=== PATIENT | male | born 1995 | race Two or more races ===

== ENCOUNTER 2017-06-23 13:46 | Emergency (ER) | payer OTHER ==
[2017-06-23 14:05] VITALS: RESP 18
[2017-06-23] MEDS ORDERED: ONDANSETRON DISINTEGRATING 4 MG TAB PO ONE (14:54)
[2017-06-23 15:50] LABS: % IMMATURE GRANULYOCYTES 0.4 % (0.0-1.1); ABSOLUTE IMMATURE GRANULOCYTES 0.04 10^3/uL (0.00-0.10); ADD DIFF? NO; ADD MORPH? NO; ADD SCAN? NO; ATYPICAL LYMPHOCYTE FLAG 0 (0-99); FRAGMENT RBC FLAG 0 (0-99); HEMATOCRIT 45.4 % (40.0-51.0); HEMOGLOBIN 15.8 g/dL (13.7-17.5); LEFT SHIFT FLG 0 (0-99); LIPEMIA HEMOLYSIS FLAG 90 (0-99); MEAN CELL HEMOGLOBIN 31.7 pg (27.9-34.1); MEAN CELL HEMOGLOBIN CONCENTR. 34.8 g/dL (32.4-36.7); MEAN CELL VOLUME 91.2 fL (81.5-99.8); PLATELET CLUMPS FLAG 20 (0-99); PLATELET COUNT 228 10^3/uL (150-400); RED BLOOD CELL COUNT 4.98 10^6/uL (4.40-6.38); RED CELL DISTRIBUTION WIDTH 11.4 % (11.5-15.2)
[2017-06-23 16:01] LABS: ALANINE AMINOTRANSFERASE 41 IU/L (21-72); ALBUMIN 5.1 g/dL (3.5-5.0); ALKALINE PHOSPHATASE 98 IU/L (38-126); ANION GAP 20 mEq/L (8-16); ASPARTATE AMINOTRANSFERASE 34 IU/L (17-59); BILIRUBIN,TOTAL 2.3 mg/dL (0.1-1.4); BILIRUBIN-CONJUGATED 0.4 mg/dL (0.0-0.5); BILIRUBIN-UNCONJUGATED 1.9 mg/dL (0.0-1.1); CALCIUM 10.3 mg/dL (8.5-10.4); CARBON DIOXIDE 20 mEq/l (22-31); CHLORIDE 104 mEq/L (97-110); CREATININE 0.9 mg/dL (0.7-1.3); GLOMERULAR FILTRATION RATE > 60; GLUCOSE 65 mg/dL (70-100); POTASSIUM 4.3 mEq/L (3.5-5.2); SODIUM 144 mEq/L (134-144); TOTAL PROTEIN 8.5 g/dL (6.3-8.2)
[2017-06-23] MEDS ORDERED: ONDANSETRON 4 MG/2 ML VIAL IVP ONE (16:12)
[2017-06-23] MEDS ORDERED: NS 1,000 ML IV ONE (16:12)
[2017-06-23] MEDS ORDERED: PANTOPRAZOLE SODIUM 40 MG VIAL IVP ONE (16:12)
--- NOTE | 2017-06-23 16:18 | EDPHY ---
H & P Time Seen by Provider: 06/23/17 14:57 HPI/ROS: CHIEF COMPLAINT: Vomiting, abdominal pain HISTORY OF PRESENT ILLNESS: 21-year-old male presents to the emergency department by private vehicle with multiple episodes of vomiting and epigastric abdominal pain. The patient states that he drank a lot of alcohol yesterday and 8 very little. He felt fine when he went to sleep and this morning woke up and has been vomiting several times. He denies diarrhea. He states most recently when he was vomiting, he noticed some blood in the emesis. He denies sore throat. Denies chest pain or difficulty breathing. Denies any reported trauma. No fevers or chills. No recent travel. REVIEW OF SYSTEMS: Constitutional: No fever, no chills. Eyes: No double or blurry vision. ENT: No sore throat. Respiratory: No cough, no shortness of breath. Cardiac: No chest pain. Gastrointestinal: Abdominal pain, vomiting as above. No diarrhea. Genitourinary: No dysuria. Musculoskeletal: No neck or back pain. Skin: No rashes. Neurological: No headache. Past Medical/Surgical History: Negative Social History: [employer] student Smoking Status: Current every day smoker Physical Exam: General Appearance: Alert, no distress. Eyes: Pupils equal and round. Extraocular motions are all intact. ENT: Mouth: Mucous membranes moist. Respiratory: No wheezing, rhonchi, or rales, lungs are clear to auscultation. Cardiovascular: Regular rate and rhythm. Gastrointestinal: Abdomen is soft. Mild tenderness with palpation in the epigastric area. There is no rebound, guarding or masses noted. No CVA tenderness bilaterally. Neurological: Alert and oriented x 3, cranial nerves II through XII grossly intact Skin: Warm and dry, no rashes. Musculoskeletal: Nontender to palpate along the cervical, thoracic or lumbar spine. Neck is supple. Extremities: Full range of motion and no peripheral edema. Psychiatric: Patient is oriented X 3, there is no agitation. Constitutional: Initial Vital Signs Temperature (C) 36.6 C 06/23/17 14:01 Heart Rate 98 06/23/17 14:01 Respiratory Rate 18 06/23/17 14:01 Blood Pressure 128/83 H 06/23/17 14:01 O2 Sat (%) 99 06/23/17 14:01 O2 Delivery Mode Room Air Allergies/Adverse Reactions: No Known Allergies Allergy (Unverified 08/04/15 19:23) Home Medications: Medication Instructions Recorded Albuterol 17 gm IH 08/04/15 Amoxicillin 500 mg PO TID 7 Days cap 08/04/15 Medical Decision Making ED Course/Re-evaluation: 21-year-old male presents to the emergency department with abdominal pain and vomiting. He has reported hematemesis. His laboratory studies are unremarkable. He was given IV Protonix, IV Zofran, and IV normal saline. He was feeling much better. He was tolerating p.o. fluids and is comfortable being discharged home. He was given apple juice. He was asking if he can go eat "Sushi" and I recommended only clear liquids until he has not vomited for at least 12 hours. I do not think imaging studies are indicated. The patient's abdomen is nontender upon discharge. Differential Diagnosis: Including but not limited to gastritis, peptic ulcer disease, GERD, dehydration , pancreatitis, GI bleed - Data Points Laboratory Results: Laboratory Results 06/23/17 15:38 06/23/17 15:38 06/23/17 06/23/17 15:38 15:38 WBC 10.29 10^3/uL H 10^3/uL (3.80-9.50) RBC 4.98 10^6/uL 10^6/uL (4.40-6.38) Hgb 15.8 g/dL g/dL (13.7-17.5) Hct 45.4 % % (40.0-51.0) MCV 91.2 fL fL (81.5-99.8) MCH 31.7 pg pg (27.9-34.1) MCHC 34.8 g/dL g/dL (32.4-36.7) RDW 11.4 % L % (11.5-15.2) Plt Count 228 10^3/uL 10^3/uL (150-400) MPV 10.0 fL fL (8.7-11.7) Neut % (Auto) 87.7 % H % (39.3-74.2) Lymph % (Auto) 8.3 % L % (15.0-45.0) [place] % (Auto) 3.0 % L % (4.5-13.0) Eos % (Auto) 0.1 % L % (0.6-7.6) Baso % (Auto) 0.5 % % (0.3-1.7) Nucleat RBC Rel Count 0.0 % % (0.0-0.2) Absolute Neuts (auto) 9.03 10^3/uL H 10^3/uL (1.70-6.50) Absolute Lymphs (auto) 0.85 10^3/uL L 10^3/uL (1.00-3.00) Absolute Monos (auto) 0.31 10^3/uL 10^3/uL (0.30-0.80) Absolute Eos (auto) 0.01 10^3/uL L 10^3/uL (0.03-0.40) Absolute Basos (auto) 0.05 10^3/uL 10^3/uL (0.02-0.10) Absolute Nucleated RBC 0.00 10^3/uL 10^3/uL (0-0.01) Immature Gran % 0.4 % % (0.0-1.1) Immature Gran # 0.04 10^3/uL 10^3/uL (0.00-0.10) Sodium 144 mEq/L mEq/L (134-144) Potassium 4.3 mEq/L mEq/L (3.5-5.2) Chloride 104 mEq/L mEq/L (97-110) Carbon Dioxide 20 mEq/l L mEq/l (22-31) Anion Gap 20 mEq/L H mEq/L (8-16) BUN 19 mg/dL mg/dL (7-23) Creatinine 0.9 mg/dL mg/dL (0.7-1.3) Estimated GFR > 60 Glucose 65 mg/dL L mg/dL (70-100) Calcium 10.3 mg/dL mg/dL (8.5-10.4) Total Bilirubin 2.3 mg/dL H mg/dL (0.1-1.4) Conjugated Bilirubin 0.4 mg/dL mg/dL (0.0-0.5) Unconjugated Bilirubin 1.9 mg/dL H mg/dL (0.0-1.1) AST 34 IU/L IU/L (17-59) ALT 41 IU/L IU/L (21-72) Alkaline Phosphatase 98 IU/L IU/L (38-126) Total Protein 8.5 g/dL H g/dL (6.3-8.2) Albumin 5.1 g/dL H g/dL (3.5-5.0) Lipase 49 IU/L IU/L (23-300) Medications Given: Discontinued Medications Sodium Chloride (Ns) 1,000 mls @ 0 mls/hr IV EDNOW ONE; Wide Open PRN Reason: Protocol Stop: 06/23/17 16:13 Last Admin: 06/23/17 16:26 Dose: 1,000 mls Ondansetron HCl (Zofran Odt) 4 mg PO EDNOW ONE Stop: 06/23/17 14:55 Last Admin: 06/23/17 14:55 Dose: Not Given Ondansetron HCl (Zofran) 4 mg IVP EDNOW ONE Stop: 06/23/17 16:13 Last Admin: 06/23/17 16:26 Dose: 4 mg Pantoprazole Sodium (Protonix) 40 mg IVP EDNOW ONE Stop: 06/23/17 16:13 Last Admin: 06/23/17 16:25 Dose: 40 mg Departure - Departure Disposition: Home, Routine, Self-Care Clinical Impression: Abdominal pain Qualifiers: Abdominal location: epigastric Qualified Code(s): R10.13 - Epigastric pain Vomiting Qualifiers: Vomiting type: unspecified Vomiting Intractability: non-intractable Nausea presence: with nausea Qualified Code(s): R11.2 - Nausea with vomiting, unspecified Condition: Good Instructions: Acute Nausea and Vomiting (ED), Acute Abdominal Pain (ED) Additional Instructions: Abdominal Pain: Return to the Emergency Department immediately for increasing pain, fever, vomiting, or if not completely better in 8-12 hours. Clear liquids and then slowly advance diet as tolerated. Referrals: Caity Negron MD [[facility] [place] Care Provider] - 1-2 days without fail ( Primary care provider director of contracts)
[2017-06-23] MEDS ORDERED: NS 50 ML BAG IV ONE (16:21)
[2017-06-23 18:10] VITALS: BP 99/50; PULSE 92; TEMP 98.4; O2SAT 98
== END 2017-06-23 18:10 | disposition home or self-care (01) ==
DX: R10.13 Epigastric pain (principal); R11.2 Nausea with vomiting, unspecified; F17.200 Nicotine dependence, unspecified, uncomplicated; E86.9 Volume depletion, unspecified
CPT/HCPCS: 96374; J2405

== ENCOUNTER 2017-07-27 13:53 | Emergency (ER) | payer OTHER ==
[2017-07-27 13:59] VITALS: RESP 16; TEMP 98.6
[2017-07-27] MEDS ORDERED: ONDANSETRON 4 MG/2 ML VIAL IVP ONE (14:52)
[2017-07-27] MEDS ORDERED: IPRATROPIUM/ALBUTEROL 3 ML DEYVIAL IH ONE (14:52)
--- NOTE | 2017-07-27 14:52 | EDPHY ---
H & P Time Seen by Provider: 07/27/17 14:20 HPI/ROS: Chief complaint. Cough and nausea HPI. 21-year-old male has been sick off and on for 1 month. Month ago he was running fever. He got better and then he has again had cough for about 1 week. 3 days ago he had too much alcohol to drink without enough food in his stomach. He has had nausea since then. Nausea but no vomiting. No abdominal pain. No diarrhea. No fever. He has a history of asthma but has not been using his inhaler. Cough is productive of yellow sputum. No chest pain, no shortness of breath. ROS Constitutional. no fever/chills, no weakness Eyes. no problems with vision ENT. no sore throat, no nasal drainage Cardiovascular. no chest pain Respiratory. No shortness of breath but cough Abdominal. Nausea but no abdominal pain . no problems urinating MS. no calf pain/swelling, no neck/back pain, no joint pain Skin. no rash Lymph. no swollen glands Neuro. no headache, no dizziness, no difficulty walking or with speech Past Medical/Surgical History: Asthma Social History: Single, daily smoker, alcohol 3 days ago Smoking Status: Current every day smoker Physical Exam: General Appearance: Alert well-developed male mild distress vital signs are stable Eyes: Pupils equal and round no pallor or injection. ENT, pharynx slightly injected without exudate. Mucous membranes are moist Respiratory: No retractions. Inspiratory expiratory rhonchi Cardiovascular: Regular rate and rhythm. Gastrointestinal: Abdomen is soft and nontender, no masses, bowel sounds normal. Neurological: Awake and alert, sensory and motor exams grossly normal. Skin: Warm and dry, no rashes. Musculoskeletal: Neck is supple nontender. Extremities symmetrical, full range of motion. Psychiatric: Patient is oriented X 3, there is no agitation. Constitutional: Initial Vital Signs Temperature (C) 37.0 C 07/27/17 13:57 Heart Rate 82 07/27/17 13:57 Respiratory Rate 16 07/27/17 13:57 Blood Pressure 170/108 H 07/27/17 13:57 O2 Sat (%) 98 07/27/17 13:57 O2 Delivery Mode Room Air Allergies/Adverse Reactions: No Known Allergies Allergy (Verified 07/27/17 13:56) Home Medications: Medication Instructions Recorded Albuterol 17 gm IH 08/04/15 Albuterol Hfa Anes Only [Proair 2 puffs IH QID PRN #1 mdi 07/27/17 Hfa Icu (*)] Ondansetron Odt [Zofran Odt] 4 mg PO Q4PRN PRN #4 tab 07/27/17 Medical Decision Making - Diagnostics Imaging Results: Imaging Impressions Chest X-Ray 07/27/17 14:53 Impression: Normal. Chest x-ray reviewed by me is normal Procedures: IV normal saline. IV Zofran. DuoNeb updraft. ED Course/Re-evaluation: Re-evaluation 3:35 p.m. patient is stable. Lungs are clear following updraft. No nausea or vomiting. Patient and I discussed the imaging and lab results. We discussed treatment plan including criteria for return and importance of follow-up further evaluation. He expresses understanding and agreement Differential Diagnosis: I considered pancreatitis, dehydration. Likely alcohol an empty stomach is the cause of his nausea. Has a history of asthma and does not use an inhaler and has had a cough. I considered bronchitis and pneumonia as well. - Data Points Laboratory Results: Laboratory Results 07/27/17 14:25 07/27/17 14:25 07/27/17 07/27/17 14:25 14:25 WBC 9.86 10^3/uL H 10^3/uL (3.80-9.50) RBC 4.80 10^6/uL 10^6/uL (4.40-6.38) Hgb 15.7 g/dL g/dL (13.7-17.5) Hct 42.9 % % (40.0-51.0) MCV 89.4 fL fL (81.5-99.8) MCH 32.7 pg pg (27.9-34.1) MCHC 36.6 g/dL g/dL (32.4-36.7) RDW 11.2 % L % (11.5-15.2) Plt Count 230 10^3/uL 10^3/uL (150-400) MPV 10.2 fL fL (8.7-11.7) Neut % (Auto) 75.5 % H % (39.3-74.2) Lymph % (Auto) 15.7 % % (15.0-45.0) [place] % (Auto) 6.4 % % (4.5-13.0) Eos % (Auto) 1.5 % % (0.6-7.6) Baso % (Auto) 0.5 % % (0.3-1.7) Nucleat RBC Rel Count 0.0 % % (0.0-0.2) Absolute Neuts (auto) 7.44 10^3/uL H 10^3/uL (1.70-6.50) Absolute Lymphs (auto) 1.55 10^3/uL 10^3/uL (1.00-3.00) Absolute Monos (auto) 0.63 10^3/uL 10^3/uL (0.30-0.80) Absolute Eos (auto) 0.15 10^3/uL 10^3/uL (0.03-0.40) Absolute Basos (auto) 0.05 10^3/uL 10^3/uL (0.02-0.10) Absolute Nucleated RBC 0.00 10^3/uL 10^3/uL (0-0.01) Immature Gran % 0.4 % % (0.0-1.1) Immature Gran # 0.04 10^3/uL 10^3/uL (0.00-0.10) Sodium 138 mEq/L mEq/L (134-144) Potassium 3.8 mEq/L mEq/L (3.5-5.2) Chloride 102 mEq/L mEq/L (97-110) Carbon Dioxide 23 mEq/l mEq/l (22-31) Anion Gap 13 mEq/L mEq/L (8-16) BUN 11 mg/dL mg/dL (7-23) Creatinine 0.9 mg/dL mg/dL (0.7-1.3) Estimated GFR > 60 Glucose 86 mg/dL mg/dL (70-100) Calcium 10.3 mg/dL mg/dL (8.5-10.4) Lipase 57 IU/L IU/L (23-300) Medications Given: Discontinued Medications Albuterol/Ipratropium (Duoneb) 3 ml IH EDNOW ONE Stop: 07/27/17 14:53 Last Admin: 07/27/17 15:19 Dose: 3 ml Sodium Chloride (Ns) 1,000 mls @ 0 mls/hr IV EDNOW ONE; Wide Open PRN Reason: Protocol Stop: 07/27/17 14:55 Last Admin: 07/27/17 15:19 Dose: 1,000 mls Ondansetron HCl (Zofran) 4 mg IVP EDNOW ONE Stop: 07/27/17 14:53 Last Admin: 07/27/17 15:19 Dose: 4 mg Departure - Departure Disposition: Home, Routine, Self-Care Clinical Impression: Asthma exacerbation Qualifiers: Asthma severity: mild Asthma persistence: persistent Qualified Code(s): J45.31 - Mild persistent asthma with (acute) exacerbation Condition: Good Instructions: Asthma (ED) Additional Instructions: Use the inhaler 2 puffs every 4-6 hours to help with cough. For nausea you may use Zofran every 4-6 hours. Frequent, small sips fluids with gradual diet advancement. Return for worsening symptoms. Recheck in 2-3 days if not improved Referrals: NONE *PRIMARY CARE P,. [Primary Care Provider] - As per Instructions Stand Alone Forms: Airline Excuse Prescriptions: Albuterol Hfa Anes Only [Proair Hfa Icu (*)] 2 puffs IH QID PRN #1 mdi PRN Reason: Cough, Moderate Ondansetron Odt [Zofran Odt] 4 mg PO Q4PRN PRN #4 tab PRN Reason: Nausea/Vomiting, Use 1st
[2017-07-27] MEDS ORDERED: NS 1,000 ML IV ONE (14:54)
[2017-07-27 15:03] LABS: % IMMATURE GRANULYOCYTES 0.4 % (0.0-1.1); ABSOLUTE IMMATURE GRANULOCYTES 0.04 10^3/uL (0.00-0.10); ADD DIFF? NO; ADD MORPH? NO; ADD SCAN? NO; ATYPICAL LYMPHOCYTE FLAG 10 (0-99); FRAGMENT RBC FLAG 0 (0-99); HEMATOCRIT 42.9 % (40.0-51.0); HEMOGLOBIN 15.7 g/dL (13.7-17.5); LEFT SHIFT FLG 0 (0-99); LIPEMIA HEMOLYSIS FLAG 90 (0-99); MEAN CELL HEMOGLOBIN 32.7 pg (27.9-34.1); MEAN CELL HEMOGLOBIN CONCENTR. 36.6 g/dL (32.4-36.7); MEAN CELL VOLUME 89.4 fL (81.5-99.8); MEAN PLATELET VOLUME 10.2 fL (8.7-11.7); PLATELET CLUMPS FLAG 20 (0-99); PLATELET COUNT 230 10^3/uL (150-400); RED CELL DISTRIBUTION WIDTH 11.2 % (11.5-15.2)
[2017-07-27 15:10] LABS: ANION GAP 13 mEq/L (8-16); CALCIUM 10.3 mg/dL (8.5-10.4); CARBON DIOXIDE 23 mEq/l (22-31); CHLORIDE 102 mEq/L (97-110); CREATININE 0.9 mg/dL (0.7-1.3); GLOMERULAR FILTRATION RATE > 60; GLUCOSE 86 mg/dL (70-100); POTASSIUM 3.8 mEq/L (3.5-5.2); SODIUM 138 mEq/L (134-144)
[2017-07-27 15:56] VITALS: BP 140/79; PULSE 97; O2SAT 100
== END 2017-07-27 15:55 | disposition home or self-care (01) ==
DX: J45.31 Mild persistent asthma with (acute) exacerbation (principal); F17.200 Nicotine dependence, unspecified, uncomplicated; E86.9 Volume depletion, unspecified
CPT/HCPCS: 96374; J2405

== ENCOUNTER 2017-07-29 10:50 | Emergency (ER) | payer OTHER ==
[2017-07-29 11:01] VITALS: PULSE 74
--- NOTE | 2017-07-29 12:29 | EDPHY ---
H & P Smoking Status: Current every day smoker Time Seen by Provider: 07/29/17 12:13 HPI/ROS: CHIEF COMPLAINT: Continued intermittent nausea HISTORY OF PRESENT ILLNESS: 21-year-old male seen emergency department 2 days ago for complaints of nausea, vomiting, in the ER complaining of continued mild nausea which typically happens when he wakes in the morning. History of daily marijuana use and heavy alcohol use recently. At last emergency department visit he had normal lipase. He has no complaints of abdominal pain. Is concerned that he is about to run out of [employer] is returning home to [place] this evening. Bowel movements have been intermittently hard any is feeling constipated. Passing gas as normal. REVIEW OF SYSTEMS: A ten point review of systems was performed and is negative with the exception of the items mentioned in the HPI PAST MEDICAL & SURGICAL HISTORY: asthma SOCIAL HISTORY: Daily marijuana and recent heavy alcohol use PHYSICAL EXAM (Prior to examination, patient consented to physical exam, hands were washed and my usual and customary physical exam procedures followed) 1) GENERAL: Well-developed, well-nourished, alert and oriented. Appears to be in no acute distress. 2) HEAD: Normocephalic, atraumatic 3) HEENT: Pupils equal, round, reactive to light bilaterally. Sclera anicteric. Nasopharynx, oropharynx, clear, no lesions. Moist mucous membranes 4) NECK: Full range of motion, no meningeal signs. 5) LUNGS: mild bilaterally end-expiratory wheezing . 6) HEART: Regular rate and rhythm, no murmur, no heave, no gallop. 7) ABDOMEN: No guarding, no rebound, no focal tenderness, negative McBurney's, negative Ardon's, negative Rovsing's, negative peritoneal sign, I am unable to elicit any abdominal pain on exam 8) MUSCULOSKELETAL: Moving all extremities, no focal areas of tenderness, no obvious trauma. No peripheral edema or discoloration. 9) BACK: No CVA tenderness, no midline vertebral tenderness, no fluctuance, no step-off, no obvious trauma, no visual or palpable abnormality. 10) SKIN: No rash, no petechiae. 11) Psychiatric: Patient is oriented X 3, there is no agitation. DIFFERENTIAL DIAGNOSIS: in no particular include but limited to gastritis, cannabis hyperemesis, cyclic vomiting, constipation (Valdemar Cheng Kaitlyn) Constitutional: Initial Vital Signs Temperature (C) 36 C 07/29/17 10:59 Heart Rate 74 07/29/17 10:59 Respiratory Rate 16 07/29/17 10:59 Blood Pressure 110/64 07/29/17 10:59 O2 Sat (%) 98 07/29/17 10:59 O2 Delivery Mode Room Air Allergies/Adverse Reactions: No Known Allergies Allergy (Verified 07/29/17 10:57) Home Medications: Medication Instructions Recorded Albuterol 17 gm IH 08/04/15 Albuterol Hfa Anes Only [Proair 2 puffs IH QID PRN #1 mdi 07/27/17 Hfa Icu (*)] Ondansetron Odt [Zofran Odt] 4 mg PO Q4PRN PRN #4 tab 07/27/17 Docusate Sodium [Colace] 100 mg PO BID #6 cap 07/29/17 Ondansetron Odt [Zofran Odt] 4 mg PO Q4PRN PRN #10 tab 07/29/17 Pantoprazole Sodium [Protonix 40mg 40 mg PO DAILY #30 tab 07/29/17 (RX)] MDM/Departure - MDM ED Course/Re-evaluation: Care of patient under supervision of secondary supervising physician Dr Jones . This patient appears well, has a nontender abdomen, continues to use daily marijuana and alcohol. I recommended cessation of these. Doubt bowel obstruction. Doubt acute appendicitis. Doubt acute surgical abdominal pathology. I reviewed his old medical records. I do not think that diagnostic studies are currently indicated from the emergency department. He is returning home to [place] this evening. I recommend he follow up with a tearoom host/hostess. I am giving a prescription for Zofran, given a prescription for proton pump inhibitor as well as Colace. Given usual and customary abdominal precautions instructions as well. He feels comfortable being discharged.. (Valdemar Cheng) I did not see this patient while he was in the emergency department. However his care was discussed with the PA while the patient was in the department. I agree with treatment plan and management (Mario Jones) - Depart Disposition: Home, Routine, Self-Care Clinical Impression: Nausea Constipation Qualifiers: Constipation type: unspecified constipation type Qualified Code(s): K59.00 - Constipation, unspecified Condition: Good Instructions: Constipation (ED) Additional Instructions: Seek immediate medical attention if you develop new or worsening symptoms, if you develop fevers, chills, inability to tolerate oral intake or any other symptoms that concerns you. stop using marijuana on a daily basis Prescriptions: Docusate Sodium [Colace] 100 mg PO BID #6 cap Ondansetron Odt [Zofran Odt] 4 mg PO Q4PRN PRN #10 tab PRN Reason: Nausea Pantoprazole Sodium [Protonix 40mg (RX)] 40 mg PO DAILY #30 tab Referrals: see, a tearoom host/hostess in 2-3 days [Other] - As per Instructions
[2017-07-29 12:55] VITALS: BP 112/74; RESP 18; TEMP 98.4; O2SAT 94
== END 2017-07-29 12:47 | disposition home or self-care (01) ==
DX: K59.00 Constipation, unspecified (principal); J45.909 Unspecified asthma, uncomplicated

== ENCOUNTER 2017-12-03 00:11 | Emergency (ER) | payer OTHER ==
[2017-12-03 00:19] VITALS: RESP 18; TEMP 98.1
[2017-12-03] MEDS ORDERED: MAG HYDROX/AL HYDROX/SIMETH 30 ML UDCUP PO ONE (00:23)
[2017-12-03] MEDS ORDERED: LIDOCAINE 2% VISCOUS 15 ML UDCUP PO ONE (00:23)
--- NOTE | 2017-12-03 00:27 | EDPHY ---
H & P Stated Complaint: acid reflux, nausea Time Seen by Provider: 12/03/17 00:16 HPI/ROS: Chief Complaint: Nausea, reflux HPI: 21-year-old male with a history of GERD is presenting with increasing acid and some nausea. Patient states that he was seen here in July and had relief with medications here. He has since followed up with GI told he probably has some reflux disease and possibly ulcer. For the last several months he has been having sensations of increasing acid brackish taste in the back of his throat. Also associated with some nausea. This is primarily after he eats a lot of spicy foods or eats before goes to bed. This began again this morning. He is not taking any medications for this. No nausea or vomiting. No diarrhea. No dark tarry stools or blood. No hematemesis. No fevers or chills. ROS: 10 point Review of Systems is negative except as noted in the HPI. PMH: GERD Social History: No smoking, no alcohol, no recreational drug use Family History: non-contributory Physical Exam: Gen: Awake, Alert, No Distress HEENT: Nose: no rhinorrhea Eyes: PERRLA, EOMI Mouth: Moist mucosa Neck: Supple, no JVD Chest: nontender, lungs clear to auscultation Heart: S1, S2 normal, no murmur Abd: Soft, non-tender, no guarding Back: no CVA tenderness, no midline tenderness Ext: no edema, non-tender Skin: no rash Neuro: CN II-XII intact, Sensation grossly intact, Strength 5/5 in bilateral upper and lower extremities - Personal History Current Tetanus/Diphtheria Vaccine: Yes Tetanus Vaccine Date: student - Medical/Surgical History Hx Asthma: Yes Hx Chronic Respiratory Disease: No Hx Diabetes: No Hx Cardiac Disease: No Hx Renal Disease: No Hx Cirrhosis: No Hx Alcoholism: No Hx HIV/AIDS: No Hx Splenectomy or Spleen Trauma: No Other PMH: asthma. daily marijuana use - Social History Smoking Status: Current every day smoker Constitutional: Initial Vital Signs Temperature (C) 36.7 C 12/03/17 00:17 Heart Rate 88 12/03/17 00:17 Respiratory Rate 18 12/03/17 00:17 Blood Pressure 119/80 12/03/17 00:17 O2 Sat (%) 98 12/03/17 00:17 O2 Delivery Mode Room Air Allergies/Adverse Reactions: No Known Allergies Allergy (Verified 07/29/17 10:57) Home Medications: Medication Instructions Recorded NK [No Known Home Meds] 12/03/17 Departure - Departure Disposition: Home, Routine, Self-Care Clinical Impression: GERD (gastroesophageal reflux disease) Condition: Good Instructions: Gastroesophageal Reflux Disease (ED) Additional Instructions: I recommend you start taking famotidine, available [id number], daily for your reflux symptoms. Follow up at [facility] in 3-4 days if symptoms are not improving. Return to the emergency department for vomiting blood, dark black tarry bowel movements, worsening pain, or any other concerns. Referrals: DION SMALL ,. [Clinic] - As per Instructions
[2017-12-03] MEDS ORDERED: ONDANSETRON DISINTEGRATING 4 MG TAB PO ONE (00:42)
[2017-12-03 01:19] VITALS: BP 117/70; PULSE 69; O2SAT 100
== END 2017-12-03 01:18 | disposition home or self-care (01) ==
DX: K21.9 Gastro-esophageal reflux disease without esophagitis (principal); F17.200 Nicotine dependence, unspecified, uncomplicated; J45.909 Unspecified asthma, uncomplicated